=== PATIENT | male | born 1990 | race Two or more races ===

== ENCOUNTER 2017-11-23 18:50 | Emergency (ER) | payer SELFPAY ==
[2017-11-23 18:54] VITALS: BP 130/79
[2017-11-23] MEDS ORDERED: TDAP ADULT 0.5 ML INJ (BOOSTRIX) IM ONE (19:10)
--- NOTE | 2017-11-23 19:10 | EDPHY ---
H & P Stated Complaint: left arm lac while moving furniture Time Seen by Provider: 11/23/17 19:04 HPI/ROS: HPI: This is a 27-year-old male who presents with Chief Complaint: left arm lac while moving furniture Location: Left posterior forearm Quality: Laceration Duration: 1 hr prior to arrival Signs and Symptoms: No bleeding, no radiation, no numbness, no weakness, no tingling, no incontinence, no decreased range of motion, no swelling, no pain, no fever Timing: Acute Severity: Mild Context: Patient is right-hand dominant, presents with complaints of puncture site by wooden handle into his left posterior forearm. He reports that he was moving furniture backing up into the doorway when he accidentally hit the door knob causing a laceration to his left forearm. He reports that he felt some mild discomfort at the time and had bleeding but has since stopped with direct pressure. Tetanus booster not up-to-date. Denies paresthesias, weakness, skin color changes, decreased range of motion. Modifying Factors: Comment: ROS: see HPI Constitutional: No fever, no chills, no weight loss Eyes: No blurred vision Respiratory: No shortness of breath, no cough Cardiovascular: No chest pain Gastrointestinal: No nausea, no vomiting no diarrhea Genitourinary: No dysuria Extremities: No myalgias Neurologic: No weakness, no numbness Skin: No rashes Hematologic: No bruising, no bleeding MEDICAL/SURGICAL/SOCIAL HISTORY: Medical history: Generally healthy. Does not take any regular medications. Surgical history: Denies Social history: Nonsmoker. Employed CONSTITUTIONAL: awake and alert, no obvious distress HEENT: Atraumatic and normocephalic. Cardiovascular: Normal S1/S2, regular rate, regular rhythm, without murmur rub or gallop. PULMONARY/CHEST: Symmetrical and nontender. no crepitus. Clear to auscultation bilaterally. Good air movement. No accessory muscle usage. ABDOMEN: Soft, nondistended, nontender, no ecchymosis. EXTREMITIES: 2/2 pulses, strength 5/5, left posterior forearm shows v-shaped skin avulsion, superficial, simple, 1 in x 1 in inside; DIP/PIP/MCP flexion/ extension intact with good light touch sensation. no deformities, no clubbing, no cyanosis or edema. NEUROLOGICAL: no focal neuro deficits. GCS 15. Light touch sensation intact. SKIN: Warm and dry, no erythema. no rash. Good capillary refill. Source: Patient, Contracting Engineer Exam Limitations: Language barrier - Personal History Current Tetanus/Diphtheria Vaccine: No Current Tetanus Diphtheria and Acellular Pertussis (TDAP): No - Medical/Surgical History Hx Asthma: No Hx Chronic Respiratory Disease: No Hx Diabetes: No Hx Cardiac Disease: No Hx Renal Disease: No Hx Cirrhosis: No Hx Alcoholism: No Hx HIV/AIDS: No Hx Splenectomy or Spleen Trauma: No Other PMH: none reported - Social History Smoking Status: Never smoked Constitutional: Initial Vital Signs Temperature (C) 36.6 C 11/23/17 18:53 Heart Rate 76 11/23/17 18:53 Respiratory Rate 19 11/23/17 18:53 Blood Pressure 130/79 H 11/23/17 18:53 O2 Sat (%) 98 11/23/17 18:53 O2 Delivery Mode Room Air Allergies/Adverse Reactions: No Known Allergies Allergy (Unverified 11/23/17 18:52) Home Medications: Medication Instructions Recorded NK [No Known Home Meds] 11/23/17 Medical Decision Making Procedures: Procedure: Laceration repair. Verbal consent was obtained from the patient. The left posterior foreign, v- shaped, laceration, 1 in x 1 in was anesthetized in the usual fashion using 5 mL of 0.5% bupivacaine with epinephrine. The wound was irrigated, draped and explored to its base with a gloved finger. There were no deep structures involved. No tendon injury was identified. The wound was repaired with #3, 5- 0 Prolene. Good hemostasis was achieved and patient tolerated procedure well. The procedure was performed by myself. ED Course/Re-evaluation: Tetanus booster given Laceration repair Clean sterile dressing applied No signs of neurovascular compromise/tenting of skin/compartment syndrome/ extremities and joints examined above and below area of concern and are neurovascularly intact. This patient was seen under the supervision of my secondary supervising physician. I evaluated care for this patient independently. Differential Diagnosis: Differential diagnosis includes but is not limited to laceration, foreign body, nerve injury, tendon injury. - Data Points Medications Given: Discontinued Medications Diphtheria/Tetanus/Acell Pertussis (Boostrix) 0.5 ml IM .ONCE ONE Stop: 11/23/17 19:11 Last Admin: 11/23/17 19:13 Dose: 0.5 ml Departure - Departure Disposition: Home, Routine, Self-Care Clinical Impression: Laceration of left forearm without complication Qualifiers: Encounter type: initial encounter Qualified Code(s): S51.812A - Laceration without foreign body of left forearm, initial encounter Condition: Good Instructions: Care For Your Stitches (ED), Laceration (ED) Additional Instructions: Keep the dressing dry and in place for 48 hours. After 48 hours, you may remove the dressing; wash the site daily with mild soap and water; then pat dry. Take Tylenol 650 mg every 4 hours and/or Ibuprofen 600 mg every 8 hours with food as needed for pain. Wound Care Follow-Up: Removal of sutures in [7-10] days. Suture removal is complimentary in uncomplicated cases. Infection or abnormal findings would require reevaluation by the MD. In that case, you may be billed. Referrals: ANTHONY SOL[facility],. [Clinic] - As per Instructions Print Language: Italian
== END 2017-11-23 19:39 | disposition home or self-care (01) ==
PROC: 0HQEXZZ Repair Left Lower Arm Skin, External Approach (ICD-10-PCS; principal; 2017-11-23)
DX: S51.812A Laceration without foreign body of left forearm, initial encounter (principal); Z23 Encounter for immunization; W22.03XA Walked into furniture, initial encounter; Y99.8 Other external cause status; Y93.89 Activity, other specified